=== PATIENT | female | born 1975 | race Caucasian/White ===

== ENCOUNTER → 2023-09-07 16:29 | Outpatient (REF) | payer BC, SELFPAY | LOC: WDC 16:29 | PROVIDERS: ATTENDING PHYSICIAN Obstetrics & Gynecology Gynecology; FAMILY PHYSICIAN Family Medicine | DX: Z12.31 Encounter for screening mammogram for malignant neoplasm of breast (principal) | CPT/HCPCS: 77063; 77067 ==

== ENCOUNTER → 2023-09-11 06:26 | Day surgery (SDC) | payer BC, SELFPAY | LOC: GI 06:26 | PROVIDERS: ATTENDING PHYSICIAN Internal Medicine Gastroenterology; FAMILY PHYSICIAN Family Medicine | DX: Z12.11 Encounter for screening for malignant neoplasm of colon (principal); D12.0 Benign neoplasm of cecum; D12.2 Benign neoplasm of ascending colon; D12.3 Benign neoplasm of transverse colon; K56.2 Volvulus; K64.0 First degree hemorrhoids | CPT/HCPCS: 45385; 45381; 45380; 88305 ==

== ENCOUNTER 2023-12-29 06:12 | Day surgery (SDC) | payer BC, SELFPAY ==
[2023-12-29 13:45] VITALS: BMI 22.4
[2023-12-29 13:50] VITALS: BP 140/87
[2023-12-29 13:59] VITALS: BMI 22.4
[2023-12-29 15:43] VITALS: BP 113/68
[2023-12-29 15:45] VITALS: BP 107/69
[2023-12-29 16:00] VITALS: BP 115/65
[2023-12-29 16:10] VITALS: BP 113/74
== END 2023-12-29 16:20 | disposition home or self-care (01) ==
LOC: SDS 06:12
PROVIDERS: ATTENDING PHYSICIAN Internal Medicine Gastroenterology
DX: D12.2 Benign neoplasm of ascending colon (principal); K64.0 First degree hemorrhoids
CPT/HCPCS: 45390; 88305

== ENCOUNTER → 2024-07-15 06:25 | Day surgery (SDC) | payer BC, SELFPAY | LOC: GI 06:25 | PROVIDERS: ATTENDING PHYSICIAN Internal Medicine Gastroenterology; FAMILY PHYSICIAN Family Medicine | DX: Z12.11 Encounter for screening for malignant neoplasm of colon (principal); K64.0 First degree hemorrhoids; K63.89 Other specified diseases of intestine; D12.2 Benign neoplasm of ascending colon; Z86.0100 Personal history of colon polyps, unspecified | CPT/HCPCS: 45385; 88305 ==

== ENCOUNTER → 2024-09-09 19:18 | Outpatient (REF) | payer BC, SELFPAY | LOC: WDC 19:18 | PROVIDERS: ATTENDING PHYSICIAN Obstetrics & Gynecology Gynecology; FAMILY PHYSICIAN Family Medicine | DX: Z12.31 Encounter for screening mammogram for malignant neoplasm of breast (principal) | CPT/HCPCS: 77063; 77067 ==

== ENCOUNTER → 2024-12-09 07:49 | Outpatient (REF) | payer BC, SELFPAY | LOC: HWRAD 07:49 | PROVIDERS: ATTENDING PHYSICIAN Obstetrics & Gynecology; FAMILY PHYSICIAN Family Medicine | DX: N95.1 Menopausal and female climacteric states (principal) | CPT/HCPCS: 76830; 76856 ==

== ENCOUNTER 2025-07-15 06:16 | Day surgery (SDC) | payer BC, SELFPAY ==
[2025-07-15 07:33] VITALS: BMI 22.4
[2025-07-15 07:37] VITALS: BP 120/68
[2025-07-15 09:16] VITALS: BP 107/49
[2025-07-15 09:31] VITALS: BP 97/56
[2025-07-15 09:35] VITALS: BP 103/60
== END 2025-07-15 10:08 | disposition home or self-care (01) ==
LOC: SDS 06:16
PROVIDERS: ATTENDING PHYSICIAN Internal Medicine Gastroenterology
DX: Z12.11 Encounter for screening for malignant neoplasm of colon (principal); D12.2 Benign neoplasm of ascending colon; K63.5 Polyp of colon; K64.0 First degree hemorrhoids; Z86.0101 Personal history of adenomatous and serrated colon polyps; Z98.890 Other specified postprocedural states
CPT/HCPCS: 45385; 88305